=== PATIENT | female | born 1985 | race Caucasian/White ===

== ENCOUNTER 2023-12-21 07:32 | Emergency (ER) | payer OTHER, BC ==
[~2023-12-21] VITALS: Ht 175.3 cm; Wt 81.0 kg
[2023-12-21] VITALS (8 sets, daily range): BP systolic 102–131; BP diastolic 38–90
== END 2023-12-21 09:55 | disposition home or self-care (01) | DRG 605 ==
LOC: ED 07:32
DX: S60.222A Contusion of left hand, initial encounter (principal); R07.89 Other chest pain; V49.40XA Driver injured in collision with unspecified motor vehicles in traffic accident, initial encounter